=== PATIENT | female | born 1935 | race Caucasian/White ===

== ENCOUNTER 2019-12-14 15:04 | Inpatient (IN) ==
[2019-12-14] MEDS ORDERED: NS 1,000 ML IV PRN (15:45)
--- NOTE | 2019-12-14 15:46 | Diag Imaging Result Doc PS360 ---
EXAM: CT HEAD W/O CONTRAST HISTORY: stroke like symptoms TECHNIQUE: Images were obtained from the skull base to vertex without IV contrast as per standard protocol. This exam was performed using automated exposure control, adjustment of mA or kV according to patient size, and/or use of iterative reconstruction technique. COMPARISON: None. FINDINGS: There are is mild cerebral atrophy. There is deep white matter hypointensity nonspecific in appearance but likely related to microvascular disease. No acute hemorrhage is identified. No midline shift or mass effect. No hydrocephalus. No large infarct is apparent. Calvarium is unremarkable. Paranasal sinuses are clear. IMPRESSION: Atrophy and microvascular disease. No acute intracranial abnormality is appreciated. Electronically signed by Karol Crowder 12/14/2019 3:44 PM
[2019-12-14 16:11] LABS: BASO# 0.03 X1000 (0.0-0.2); BASO% 0.4 % (0.0-0.8); EOS% 1.5 % (0.0-10.0); HEMATOCRIT 39.7 % (37.0-47.0); HEMOGLOBIN 13.3 g/dL (12.0-16.0); IMM GRAN# 0.01 X1000 (0.0-0.04); IMM GRAN% 0.1 % (0.0-0.5); LYMPH# 3.27 X1000 (1.2-3.4); LYMPH% 48.8 % (20.5-51.1); MCH 31.1 PG (27-31); MCHC 33.5 g/dL (33-37); MONO# 0.67 X1000 (0.11-0.59); MPV 9.9 FL (7.4-10.4); NEUT# 2.62 X1000 (1.4-6.5); NEUT% 39.2 % (42.2-75.2); PLT 333 X1000 (130-400); RBC 4.27 XMIL (4.2-5.4); RDW 13.8 % (11.5-14.5)
--- NOTE | 2019-12-14 16:23 | Diag Imaging Result Doc PS360 ---
EXAM: CHEST-PORTABLE HISTORY: stroke like syndrome TECHNIQUE: Single view of the chest was performed portably. COMPARISON: None. FINDINGS: The cardiomediastinal silhouette is within normal limits. The pulmonary vasculature is not congested. There are prominent interstitial markings at the lung bases which may be acute or chronic. No focal consolidation, effusion, or pneumothorax is appreciated. IMPRESSION: Mildly increased interstitial markings at the bases which is nonspecific. No focal consolidation is identified. Electronically signed by Karol Crowder 12/14/2019 4:20 PM
[2019-12-14 16:27] LABS: AGAP 13; ALBUMIN 4.2 g/dL (3.5-5.0); BUN 21 mg/dL (8-22); CALCIUM 9.5 mg/dL (8.8-10.2); CHLORIDE 97 mmol/L (98-107); COSMO 272; CREATININE 0.8 mg/dL (0.5-0.9); ESTIMATED GFR > 60; GLUCOSE 113 mg/dL (70-104); POTASSIUM 4.5 mmol/L (3.5-5.1); SODIUM 134 mmol/L (136-145); TCO2 24 mmol/L (25-35); TOTAL PROTEIN 6.7 g/dL (6.3-8.3)
[2019-12-14 16:28] LABS: ALKALINE PHOSPHATASE 48 U/L (32-104); GOT 25 U/L (10-30); GPT 17 U/L (10-36)
[2019-12-14 16:35] LABS: INR 0.95; PROTIME 13.1 Seconds (11.0-16.0); PTT 29.9 Seconds (22.3-41.8)
[2019-12-14 16:57] LABS: URINE SOURCE CLEAN CATCH
[2019-12-14 17:01] LABS: BILIRUBIN URINE NEGATIVE (NEGATIVE); BLOOD URINE NEGATIVE (NEGATIVE); COLOR YELLOW; GLUCOSE URINE NEGATIVE (NEGATIVE); KETONE URINE NEGATIVE (NEGATIVE); LEUKOCYTES URINE NEGATIVE (NEGATIVE); NITRITE URINE NEGATIVE (NEGATIVE); PROTEIN URINE NEGATIVE (NEGATIVE); SP GRAVITY URINE 1.011; TURBIDITY URINE CLEAR (CLEAR); UROBILINOGEN URINE NORMAL (NORMAL)
[2019-12-14 17:03] LABS: UR EPITHELIAL CELLS <10 /HPF (<10); URINE BACTERIA NEGATIVE /HPF; URINE RBC <10 /HPF (<10); URINE WBC <10 /HPF (<10)
[2019-12-14 17:10] LABS: UR AMPHETAMINES QUAL NONE DETECTED (NONE DETECT); UR BARBITUATES QUAL NONE DETECTED (NONE DETECT); UR BENZODIAZEPIN QUAL NONE DETECTED (NONE DETECT); UR CANNABINOIDS QUAL NONE DETECTED (NONE DETECT); UR COCAINE QUAL NONE DETECTED (NONE DETECT); UR METHADONE QUAL NONE DETECTED (NONE DETECT); UR METHAMPHETAMINE QUAL NONE DETECTED (NONE DETECT); UR OPIATES QUAL NONE DETECTED (NONE DETECT); UR OXYCODONE QUAL NONE DETECTED (NONE DETECT); UR PCP QUAL NONE DETECTED (NONE DETECT); UR PROPOXYPHENE QUAL NONE DETECTED (NONE DETECT); UR TCA QUAL NONE DETECTED (NONE DETECT)
--- NOTE | 2019-12-14 17:19 | PROVIDER DOCUMENTATION ---
This chart was entered by Kim Rsoenberg Scribe, acting as scribe for Nadege Castro MD. HPI-Neurological Disorder - General Chief Complaint: Stroke-Like Symptoms Stated Complaint: AMS Time Seen by Provider: 12/14/19 15:14 Source: patient, family (daughter) Allergies/Adverse Reactions: Patient Allergies Allergy/AdvReac Type Severity Reaction Status Date / Time Sulfa (Sulfonamide Allergy HIVES Verified 01/20/17 10:43 Antibiotics) codeine AdvReac NAUSEA/VOMI Verified 01/20/17 10:43 TING hydrocodone AdvReac NAUSEA/VOMI Verified 01/20/17 10:43 TING morphine AdvReac NAUSEA/VOMI Verified 01/20/17 10:43 TING propoxyphene HCl * AdvReac NAUSEA/VOMI Verified 01/20/17 10:43 [From Darvon] TING Home Medications: Home Medication List Medication Instructions Recorded Confirmed Last Taken Type Irbesartan 1 tab PO DAILY 05/20/18 05/20/18 Unknown History Metoprolol [Lopressor] 1 tab PO DAILY 05/20/18 05/20/18 Unknown History Polyethylene Glycol 3350 [Miralax] 17 gm PO DAILY #255 powder 05/20/18 Unknown Rx - History of Present Illness-Neuro Nature of Presenting Problem: Patient is a 84 year old female who presents with daughter for slurred speech. Daughter states the patient noticed the slurred speech this morning at 0800 when waking. Denies history of CVA. Severity: reports: mild Onset/Duration: reports: other (with waking this morning at 0800) Timing: reports: still present Context: reports: impaired speech (slurred) Character of Deficits: reports: impaired speech (slurred) Associated Symptoms: reports: denies symptoms Similar Symptoms Previously?: No Recently seen or treated by another doctor?: No Review of Systems - Adult - REVIEW OF SYSTEMS - ADULT Constitutional: reports: no symptoms reported Eyes: reports: no symptoms reported Ears, Nose, Mouth & Throat: reports: no symptoms reported Cardiovascular: reports: no symptoms reported Respiratory: reports: no symptoms reported Gastrointestinal: reports: no symptoms reported Genitourinary: reports: no symptoms reported Musculoskeletal: reports: no symptoms reported Integumentary: reports: no symptoms reported Neurological: reports: see HPI, slurred speech Psychiatric: reports: no symptoms reported Endocrine: reports: no symptoms reported Hematologic/Lymphatic: reports: no symptoms reported Allergic/Immunologic: reports: no symptoms reported All Other Systems: Reviewed and Negative Past History - Adult - PAST MEDICAL HISTORY-ADULT Review of Records: reports: Old Records Reviewed, Nursing Assessment Review, Medications Reviewed, Social history reviewed & non-contributory. Major Childhood Illnesses: reports: denies history Cardiovascular: reports: HTN Respiratory: reports: denies history Gastrointestinal: reports: other (Diverticulitis) Obstetrical/Gynecological: reports: denies history Genitourinary: reports: kidney stones Musculoskeletal: reports: denies history Neurological: reports: denies history Endocrine/Immune: reports: denies history Other Conditions: reports: denies history - PRIOR SURGERIES/PROCEDURES Surgical/Procedure History: reports: cholecystectomy - IMMUNIZATION STATUS Childhood Immunizations: See Nurse Assessment Flu Vaccine: See Nurse Assessment - FAMILY HISTORY Family History: reviewed, not pertinent - SOCIAL HISTORY Smoking: denies Substance Use: denies Living Situation: family Physical Exam- Neurological - Physical Exam-Neuro Initial Vital Signs Reviewed: Yes General Appearance: alert, no apparent distress. negative: lethargic Eye Exam: bilateral eye: normal inspection HENMT: normocephalic/atraumatic, moist mucous membranes Head Injury: no evidence of injury. negative: active bleeding, lacerations Respiratory: chest non-tender, lungs clear, normal breath sounds. negative: wheezing Cardiovascular: regular rate, rhythm. negative: tachycardia Abdominal Exam: normal bowel sounds, non tender, soft, distended. negative: guarding Extremity: non-tender, normal inspection. 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 negative: facial droop Motor/Sensory: no sensory deficit, weak motor strength RUE. negative: weak motor strength RLE Neurologic: motor weakness (RUE), other (slurred speech). negative: facial droop Integumentary: normal color, normal turgor, warm/dry Psych/Mental Status: normal mood/affect, normal thought content, normal thought process, oriented x 3 Progress - PLAN OF CARE/RESULTS Progress/Plan/Lab Results: Vital Signs - 8 hr 12/14/19 15:09 Temperature 98.7 F Pulse Rate 60 Respiratory Rate 18 Blood Pressure 196/43 O2 Sat by Pulse Oximetry 97 Laboratory Results - last 24 hr 12/14/19 12/14/19 12/14/19 15:54 15:54 15:54 WBC 6.70 RBC 4.27 Hgb 13.3 Hct 39.7 MCV 93.0 MCH 31.1 H MCHC 33.5 RDW Std Deviation 13.8 Plt Count 333 MPV 9.9 Immature Gran % (Auto) 0.1 Neut % (Auto) 39.2 L Lymph % (Auto) 48.8 [place] % (Auto) 10.0 H Eos % (Auto) 1.5 Baso % (Auto) 0.4 Immature Gran # (Auto) 0.01 Neut # (Auto) 2.62 Lymph # (Auto) 3.27 [place] # (Auto) 0.67 H Eos # (Auto) 0.10 Baso # (Auto) 0.03 PT INR PTT (Actin FS) Sodium 134 L Potassium 4.5 Chloride 97 L Carbon Dioxide 24 L Anion Gap 13 BUN 21 Creatinine 0.8 Estimated GFR/1.73 m2 > 60 BUN/Creatinine Ratio 26 Glucose 113 H Calculated Osmolality 272 Calcium 9.5 Total Bilirubin 0.40 AST 25 ALT 17 Alkaline Phosphatase 48 Troponin T High Sens 18 Total Protein 6.7 Albumin 4.2 Globulin 3.0 Albumin/Globulin Ratio 2.0 Urine Source Urine Color Urine Turbidity Urine pH Ur Specific Duff Urine Protein Ur Glucose (Stick) Ur Ketones (Stick) Urine Blood Urine Nitrite Urine Bilirubin Urobilinogen Dipstick Urine Leukocytes Urine WBC (Auto) Urine RBC (Auto) U Epithel Cells (Auto) Urine Bacteria (Auto) Urine Opiates Screen Ur Oxycodone Screen Urine Methadone Screen U Propoxyphene Qual Ur Barbituates Screen Ur Tricyclics Screen Ur Phencyclidine Scrn Ur Amphetamines Screen U Methamphetamines Scrn U Benzodiazepines Scrn Urine Cocaine Screen U Cannabinoids Screen 12/14/19 12/14/19 12/14/19 15:54 16:45 16:45 WBC RBC Hgb Hct MCV MCH MCHC RDW Std Deviation Plt Count MPV Immature Gran % (Auto) Neut % (Auto) Lymph % (Auto) Ballard % (Auto) Eos % (Auto) Baso % (Auto) Immature Gran # (Auto) Neut # (Auto) Lymph # (Auto) [place] # (Auto) Eos # (Auto) Baso # (Auto) PT 13.1 INR 0.95 PTT (Actin FS) 29.9 Sodium Potassium Chloride Carbon Dioxide Anion Gap BUN Creatinine Estimated GFR/1.73 m2 BUN/Creatinine Ratio Glucose Calculated Osmolality Calcium Total Bilirubin AST ALT Alkaline Phosphatase Troponin T High Sens Total Protein Albumin Globulin Albumin/Globulin Ratio Urine Source CLEAN CATCH Urine Color YELLOW Urine Turbidity CLEAR Urine pH 7.0 Ur Specific Duff 1.011 Urine Protein NEGATIVE Ur Glucose (Stick) NEGATIVE Ur Ketones (Stick) NEGATIVE Urine Blood NEGATIVE Urine Nitrite NEGATIVE Urine Bilirubin NEGATIVE Urobilinogen Dipstick NORMAL Urine Leukocytes NEGATIVE Urine WBC (Auto) <10 Urine RBC (Auto) <10 U Epithel Cells (Auto) <10 Urine Bacteria (Auto) NEGATIVE Urine Opiates Screen NONE DETECTED Ur Oxycodone Screen NONE DETECTED Urine Methadone Screen NONE DETECTED U Propoxyphene Qual NONE DETECTED Ur Barbituates Screen NONE DETECTED Ur Tricyclics Screen NONE DETECTED Ur Phencyclidine Scrn NONE DETECTED Ur Amphetamines Screen NONE DETECTED U Methamphetamines Scrn NONE DETECTED U Benzodiazepines Scrn NONE DETECTED Urine Cocaine Screen NONE DETECTED U Cannabinoids Screen NONE DETECTED Orders Category Date Time Status Cardiac Monitoring DIRECTED Care 12/14/19 15:46 Active Misc. NRSG Communication Order DIRECTED Care 12/14/19 15:46 Active Saline Loc NOW Care 12/14/19 15:46 Active CHEST-PORTABLE [RAD] Stat Exams 12/14/19 15:[address] HEAD W/O CONTRAST [CT] Stat Exams 12/14/19 15:20 Completed CBC WITH ELECTRONIC DIFF [HEME] Stat Lab 12/14/19 15:54 Completed COMPREHENSIVE METABOLIC PANEL [CHEM] Stat Lab 12/14/19 15:54 Completed PROTIME WITH INR [COAG] Stat Lab 12/14/19 15:54 Completed PTT [COAG] Stat Lab 12/14/19 15:54 Completed TROPONIN T HIGH SENSITIVITY Stat Lab 12/14/19 15:54 Completed URINALYSIS W/POSS RFLX CULT [URINALYSIS] Stat Lab 12/14/19 16:45 Com[address] URINE DRUG SCREEN PL Stat Lab 12/14/19 16:45 Completed 0.9% Sodium Chloride Inj [Ns] 1,000 ml Med 12/14/19 15:45 Active IV 999 mls/hr EKG [EKG] Stat Ther 12/14/19 15:46 Ordered Result Diagrams: 12/14/19 15:54 12/14/19 15:54 - EKG 1 Time of EKG reading by physician:: 15:57 EKG Read and Signed by:: Nadege Castro EKG Interpretation (*Must complete 3 of following elements*): Abnormal Rate: 57 Rhythm: sinus bradycardia [place]: normal QRS: LBB ME Interval: normal Comments: abnormal ECG - XRAY 1 XRAY Study: Chest Impression: See EMR Report ( EXAM: CHEST-PORTABLE HISTORY: stroke like syndrome TECHNIQUE: Single view of the chest was performed portably. COMPARISON: None. FINDINGS: The cardiomediastinal silhouette is within normal limits. The pulmonary vasculature is not congested. There are prominent interstitial markings at the lung bases which may be acute or chronic. No focal consolidation, effusion, or pneumothorax is appreciated. IMPRESSION: Mildly increased interstitial markings at the bases which is nonspecific. No focal consolidation is identified. Electronically signed by Karol Crowder 12/14/2019 4:20 PM 12/14/19 1620 Interpreting Physician: Karol Crowder MD Dictated Date/Time: 12/14/19 1618 cc: Nadege Castro MD; Ehsan Reynoso MD) - CT/MRI 1 CT Study: Head Impression: See EMR Report ( EXAM: CT HEAD W/O CONTRAST HISTORY: stroke like symptoms TECHNIQUE: Images were obtained from the skull base to vertex without IV contrast as per standard protocol. This exam was performed using automated exposure control, adjustment of mA or kV according to patient size, and/or use of iterative reconstruction technique. COMPARISON: None. FINDINGS: There are is mild cerebral atrophy. There is deep white matter hypointensity nonspecific in appearance but likely related to microvascular disease. No acute hemorrhage is identified. No midline shift or mass effect. No hydrocephalus. No large infarct is apparent. Calvarium is unremarkable. Paranasal sinuses are clear. IMPRESSION: Atrophy and microvascular disease. No acute intracranial abnormality is appreciated. Electronically signed by Karol Crodwer 12/14/2019 3:44 PM 12/14/19 1544 Interpreting Physician: Karol Crowder MD Dictated Date/Time: 12/14/19 1538 cc: Nadege Castro MD; Ehsan Reynoso MD) Departure - Departure Date of Disposition Decision: 12/14/19 Time of Disposition Decision: 17:18 DIAGNOSIS: Expressive dysphasia Disposition: ADMITTED INPATIENT 09 Certified Medical Emergency: Emergent Condition: Good Referrals and Follow-Ups: Ehsan Reynoso MD [Primary Care Provider] - - Critical Care Note This patient required my direct & personal management of CC.: No Attestation - Physician/ OPAL Attestation Patient care was provided by Advanced Practice Provider:: No The physician spent face to face time with patient:: Yes Advanced Practice Provider documentation review:: Supervising physician onsite and consulted in the evaluation and care of this patient. The physician did have a face to face encounter with the patient. This chart was documented by the indicated scribe, (Kim Rosenberg Scribe) and accurately reflects the services I performed and decisions made by me, Nadege Castro MD, as attested by the provider's signature.
[2019-12-14] MEDS ORDERED: NS 1,000 ML IV SCH (18:29)
[2019-12-14] MEDS ORDERED: ZOFRAN IV PRN (18:29)
[2019-12-14] MEDS ORDERED: TYLENOL PO PRN (18:29)
--- NOTE | 2019-12-14 18:44 | HISTORY AND PHYSICAL ---
PRIMARY CARE PROVIDER: Dr. Ehsan Reynoso CHIEF COMPLAINT: Slurred speech, not feeling right. HISTORY OF PRESENT ILLNESS: Ms. Cox is an 84-year-old female who carries a past medical history of hypertension, remote history of diverticulitis, as well as kidney stones, hyperlipidemia. Per daughter at bedside. She called to check on her mom this morning, and her father said she was acting strangely and went back to bed. The sister went to the house to check on her. She was having quite a bit of slurred speech. She was unable to get some of her words out. She was holding her head funny. She had some weakness. They were not able to tell if it was unilateral or bilateral. The patient reports "feeling weird." Daughter at bedside as well as patient feels that her slurred speech has improved. However, it has not completely gone away. You can tell she is trying to find some of her words when she is speaking to you. She does have some minor weaknesses on her right upper and lower extremity, but she knows her name, her date of , the current date, the president, current events. Initial head CT does not show anything acute. We will do a full neurological workup in the a.m. and give her a dose of full-dose aspirin. PAST MEDICAL HISTORY: Hypertension, hyperlipidemia, remote history of diverticulitis and remote history of kidney stones. PAST SURGICAL HISTORY: Exploratory laparotomy where she had bilateral ovary cyst removed at that time and she had a left ovary removed and at that time her appendix out. Neck surgery, fusion, carpal tunnel on the right, cholecystectomy, bilateral cataracts, EGD, and a tilt-table test secondary to syncope. FAMILY HISTORY: Reviewed and noncontributory. SOCIAL HISTORY: She is . She lives at home with her . She has 2 daughters. There is no smoking. No alcohol. No illicit drugs. MEDICATIONS: Home medications are being compiled. REVIEW OF SYSTEMS: Twelve-point review of systems completely negative except for those mentioned in the HPI. PHYSICAL EXAMINATION: VITAL SIGNS: Temperature is 98.6 degrees, heart rate 60, respirations 18, blood pressure 196/43, O2 is 97% on room air. GENERAL: Ms. Cox is an 84-year-old female who is sitting up in stretcher, in no acute distress. HEENT: Atraumatic, normocephalic. PERRL. NECK: Supple. Trachea midline. CARDIOVASCULAR: S1, S2 appreciated. No murmurs, gallops, rubs noted. RESPIRATORY: Lung sounds clear bilaterally. GASTROINTESTINAL: Abdomen soft, nontender, nondistended. Positive bowel sounds 4 quadrants. EXTREMITIES: Lower extremities negative for edema. NEUROLOGIC: Patient is awake, alert, oriented to name, date of , current year, location, president, as well as current events with the stern virus. She continues to have some slurred speech. She does have some weakness on her right. She does have trouble finding her words at times. There was no pronator drift. Tongue is midline. Smile was symmetrical. No facial drooping. No weakness in her shoulder shrug. Follows commands well. DIAGNOSTIC DATA: Head CT does not show anything acute, just some chronic changes. Chest x-ray, mild interstitial markings at the bases that is nonspecific. No consolidation. LABORATORY DATA: White count is 6, hemoglobin and hematocrit of 13 and 39, platelet count is 333,000. Sodium 134, chloride 97, potassium is 4.5, BUN 21, creatinine 0.8, blood glucose is 113. Urinalysis is negative. Drug screen negative. ASSESSMENT AND PLAN: 1. Cerebrovascular accident rule out. Patient does have some residual weakness as well as slurred speech and difficulty finding her words and "feeling weird." We will do a brain MRI/MRA, carotids and echo in the a.m. and give her full-dose aspirin now and daily. Check a lipid profile. We will keep her n.p.o. for now and have the nurses do a bedside swallow. If she passes we will start her on a healthy heart diet tonight. 2. Hypertension. We will allow for some permissive hypertension. 3. Hyperlipidemia. We will check a lipid profile. Go ahead and start her on a statin. 4. Further recommendation to follow physician evaluation, laboratory and diagnostic data. Dictated by ALAINA Martinez for Ehsan Reynoso MD cc: Ehsan Reynoso MD
--- NOTE | 2019-12-14 19:06 | EKG Report ---
Test Performed on : 12/14/2019 3:57:34 PM Test Reason : stroke like symptoms Blood Pressure : / mmHG Vent. Rate : 057 BPM Atrial Rate : 057 BPM P-R Int : 182 ms QRS Dur : 128 ms QT Int : 416 ms P-R-T Axes : 024 -21 136 degrees QTc Int : 404 ms Sinus bradycardia. Left bundle branch block Abnormal ECG When compared with ECG of 20-JAN-2017 10:37, T wave inversion more evident in Lateral leads Unconfirmed Result
--- NOTE | 2019-12-14 22:30 | HISTORY AND PHYSICAL ---
HISTORY OF PRESENT ILLNESS: The patient presented to the hospital with a sudden onset of slurred speech, although this is almost completely resolved, it is not back to normal. She was noted to have high blood pressure in the ER. We are going to admit her to the hospital. Follow her blood pressures which were initially 196/43, currently 145/60. We will check carotids and we will rule out for stroke. cc: Ehsan Reynoso MD
[2019-12-14] MEDS: ASPIRIN PO SCH (22:36)
[2019-12-14] MEDS: LIPITOR PO SCH (22:36)
[2019-12-15 07:08] LABS: HEMATOCRIT 37.9 % (37.0-47.0); HEMOGLOBIN 12.6 g/dL (12.0-16.0); RBC 4.07 XMIL (4.2-5.4); WBC 6.28 X1000 (4.8-10.8)
[2019-12-15 07:14] LABS: MCV 93.1 FL (81-99)
[2019-12-15 07:17] LABS: MCHC 33.2 g/dL (33-37); PLT 316 X1000 (130-400)
[2019-12-15 07:18] LABS: BASO# 0.04 X1000 (0.0-0.2); BASO% 0.6 % (0.0-0.8); EOS# 0.12 X1000 (0.0-0.7); EOS% 1.9 % (0.0-10.0); LYMPH# 3.57 X1000 (1.2-3.4); LYMPH% 56.8 % (20.5-51.1); MONO# 0.64 X1000 (0.11-0.59); MONO% 10.2 % (1.7-9.3); NEUT% 30.3 % (42.2-75.2)
[2019-12-15 07:29] LABS: AGAP 10; ALBUMIN 3.6 g/dL (3.5-5.0); ALKALINE PHOSPHATASE 34 U/L (32-104); BUN 17 mg/dL (8-22); CALCIUM 8.5 mg/dL (8.8-10.2); CHLORIDE 103 mmol/L (98-107); COSMO 278; CREATININE 0.5 mg/dL (0.5-0.9); ESTIMATED GFR > 60; GLUCOSE 104 mg/dL (70-104); GOT 21 U/L (10-30); GPT 15 U/L (10-36); POTASSIUM 4.3 mmol/L (3.5-5.1); SODIUM 138 mmol/L (136-145); TCO2 25 mmol/L (25-35); TOTAL PROTEIN 6.3 g/dL (6.3-8.3)
--- NOTE | 2019-12-15 08:05 | EKG Report ---
Test Performed on : 12/15/2019 07:40:07 AM Test Reason : QAM REPEAT Blood Pressure : / mmHG Vent. Rate : 056 BPM Atrial Rate : 056 BPM P-R Int : 158 ms QRS Dur : 130 ms QT Int : 460 ms P-R-T Axes : 063 -48 105 degrees QTc Int : 443 ms Sinus bradycardia. Left axis deviation Left bundle branch block Abnormal ECG When compared with ECG of 14-DEC-2019 15:57, (Unconfirmed) T wave inversion less evident in Lateral leads Confirmed by Drake Marc MD ([id number]) on 12/17/2019 1:17:53 AM
--- NOTE | 2019-12-15 11:51 | Diag Imaging Result Doc PS360 ---
EXAM: MRI BRAIN W/WO CONTRAST - 12/15/2019 HISTORY: stroke TECHNIQUE: MRI brain without and with contrast. Images are obtained prior to and following gadolinium administration. COMPARISON: 12/14/2019 CT head without contrast FINDINGS: There is an approximately 2.2 cm in AP dimension by 0.8 cm in transverse dimension area of restricted diffusion on the diffusion weighted images at the posterior lateral basal ganglia and adjacent external capsule on the left. The restricted diffusion also extends superiorly superiorly medially from this area to the periventricular region. This is compatible with acute infarct. There is corresponding increased signal on the FLAIR and T2-weighted images. The diffusion weighted images show no other areas of restricted diffusion. There are chronic microvascular ischemic changes in bilateral white matter. There is no evidence of intracranial hemorrhage, mass effect, midline shift, or hydrocephalus. There is no abnormal enhancement identified. 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 Chronic microvascular ischemic changes. No hemorrhage, mass effect, or abnormal enhancement seen. Electronically signed by Magnus Díaz 12/15/2019 11:49 AM
[2019-12-15] MEDS: ASPIRIN PO SCH (11:56)
--- NOTE | 2019-12-15 12:02 | Diag Imaging Result Doc PS360 ---
EXAM: MRA BRAIN W/O CONTRAST - 12/15/2019 HISTORY: stroke TECHNIQUE: MRA brain without contrast. MR angiogram of the intracranial circulation with 3-D MIP images is obtained. COMPARISON: Exam is correlated with the 2019 MRI brain. FINDINGS: There is short segment tight stenosis at the M1 segment left middle cerebral artery. The poststenotic segment is tortuous and possibly mildly dilated. There is short segment tight stenosis at the middle portion of the A2 segment of the left anterior cerebral artery. There is possible short segment relatively tight stenosis at the proximal left posterior cerebral artery, but this is difficult to definitively distinguish from artifact. There is no other major intracranial arterial occlusion identified. There is no aneurysm identified. The right vertebral artery appears to be dominant. 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 Short segment tight stenosis at the middle portion of the A2 segment left anterior cerebral artery. Possible short segment relatively tight stenosis at proximal left posterior cerebral artery versus artifact. Electronically signed by Magnus Díaz 12/15/2019 12:00 PM
--- NOTE | 2019-12-15 12:37 | ECHO REPORT ---
ORDER DATE: 12/15/2019 INDICATION: CVA. FINDINGS: 1. The right atrium appears normal in size. 2. Mild tricuspid regurgitation. RV systolic pressure is estimated at 42 mmHg, but this is a difficult estimation. 3. Poor visualization of the right ventricle, but probable normal RV systolic function. 4. No significant pulmonic insufficiency. 5. Normal left atrial size with a volume index of 25. 6. No mitral valve prolapse. Mild mitral regurgitation. No mitral stenosis. 7. Normal LV size with an end-diastolic dimension of 3.6 cm. [id number] left ventricular hypertrophy with a posterior and interventricular septal wall thickness of 1.4 cm each. Normal ejection fraction with an estimated EF of 60% to 65% with no wall motion abnormalities. Grade 2 diastolic dysfunction. 8. The aortic valve opens well, trileaflet. No evidence of stenosis or insufficiency. 9. The aorta appears normal on visualized segments. 10. No pericardial effusion seen. cc: Marcos Clemente MD
--- NOTE | 2019-12-15 14:28 | Vascular Study Report ---
EXAM: Carotid Ultrasound INDICATION: cva TECHNIQUE: COMPARISON: None. FINDINGS: Right: At the right carotid bulb, there is a mixture of soft plaque and calcified plaque. The peak systolic velocity measures 117, 86, 71, 114, 85, 77, and 114 cm/s at the right subclavian artery, CCA, bifurcation, proximal ICA, mid ICA, distal ICA, and ECA, respectively. There is antegrade flow in the vertebral artery. The carotid ratio is 1.34. The estimated stenosis is 40-59%. Left: There is mild atherosclerotic plaque with calcification at the left carotid bulb. The peak systolic velocity measures 167, 67, 77, 70, 64, 67, 95 cm/s at the left subclavian artery, CCA, bifurcation, proximal ICA, mid ICA, distal ICA, and ECA, respectively. There is antegrade flow in the vertebral artery. The carotid ratio is 1.06. The estimated stenosis is less than 39%. IMPRESSION: Bilateral carotid bulb atherosclerotic disease that is worse on the right as detailed above. Electronically signed by Darien Holden 12/15/2019 2:25 PM
[2019-12-15] MEDS: LIPITOR PO SCH (20:23)
--- NOTE | 2019-12-15 23:12 | PROGRESS NOTE ---
DATE: 12/15/2019 SUBJECTIVE: The patient has no new complaints. She notes that her speech is improving. Denies any fevers or chills. PHYSICAL EXAMINATION: Vital Signs: Temperature 97.8, pulse 51, respiratory rate 18, BP 140/41. General: The patient is awake, pleasant. She is in no current respiratory distress. Speech seems to be back to normal compared to her baseline. HEENT: Normocephalic. Neck: Supple. Cardiovascular: Regular rate. Chest: Clear, nonlabored. Abdomen: Soft, nondistended. Extremities: Moves all extremities. ASSESSMENT: 1. Acute CVA as noted by MRI. 2. Hypertension. 3. Hyperlipidemia. PLAN: The patient's blood pressure is stable. We are going to watch her in the hospital today. If her symptoms continue to improve hopefully she can discharge home tomorrow. cc: Ehsan Reynoso MD
[2019-12-16 08:02] VITALS: BP 148/44
[2019-12-16] MEDS: ASPIRIN PO SCH (08:27)
--- NOTE | 2019-12-16 09:29 | DISCHARGE SUMMARY ---
ADMISSION DATE: 12/14/2019 DISCHARGE DATE: 12/16/2019 PRIMARY PROCEDURES: Head CT head CT, atrophy and microvascular disease, no acute intracranial abnormality. Brain MRA shows a short segment stenosis at the M1 segment left middle cerebral artery, short segment type stenosis in the midportion of the A2 segment left anterior cerebral artery, possible short-segment relatively tight stenosis of proximal left posterior cerebral artery versus artifact. Brain MRI, acute infarct at the left posterior left basal ganglia, external capsule with superior medial extension into the periventricular region, chronic ischemic changes, no hemorrhage, no mass effect. Echocardiogram showed a grade 2 diastolic dysfunction with an EF of 60 to 65 percent with no wall motion abnormalities. Carotid Dopplers, bilateral carotid bulb atherosclerosis disease that is worse on the right, right is 40 to 59, left is less than 39. DISCHARGE DIAGNOSES: 1. Acute cerebrovascular accident noted on MRI. The patient continues with some expressive aphasia. She has been evaluated by Physical Therapy as well as Speech Therapy. They recommend home health with PT and speech. Added Lipitor to her regimen. 2. Hypertension, controlled. 3. Hyperlipidemia. Continue Lipitor. HOSPITAL COURSE: Briefly, Ms. Cox is an 84-year-old female with a past medical history of hypertension and remote history of diverticulitis, as well as kidney stones and hyperlipidemia. Family reported that the patient was acting strangely in the morning, that she went back to bed. Her daughter went to check on her and she was having quite a bit of slurred speech. She was having difficulty getting her words out and they felt that she was holding her head funny and the patient "felt weird," so she was brought to the ED to be evaluated. She had some minor weaknesses on her right upper and lower extremities. She was still having some slurred speech as well as difficulty finding her words; however, the daughter stated that it had dramatically improved. Full neurological workup was done. The patient's findings on MRI did show acute infarct at the left posterior lateral basal ganglia external capsule with superior medial extension to the periventricular region. She was continued on aspirin and initiated on Lipitor, which she will be discharged home on as well as home health with speech and physical therapy. VITAL SIGNS: At time of her discharge temperature is 98.1 degrees, heart rate 62, respirations 16, blood pressure 148/44, O2 is 97% to room air. DISCHARGE MEDICATIONS: 1. Celecoxib 100 mg p.o. daily. 2. Spironolactone 12.5 mg p.o. daily. 3. Lipitor 20 mg p.o. daily. FOLLOWUP: Ms. Cox is being discharged home with home health with PT and speech therapy. She will follow up with her primary care provider, Dr. Ehsan Reynoso. She will take all medications as prescribed. She can return to the ED or call 911 for any worsening of symptoms. Dictated by ALAINA Martinez for Ehsan Reynoso MD cc: Ehsan Reynoso MD
--- NOTE | 2019-12-16 19:50 | DISCHARGE SUMMARY ---
ADMISSION DATE: 12/14/2019 DISCHARGE DATE: 12/16/2019 Patient unfortunately did have a stroke. Her speech, however, is almost completely back to normal. She is awake, alert. She has no difficulty moving her extremities. She is able to ambulate without any difficulty. Blood pressures are mildly elevated 158/49. Patient will restart her home blood pressure medications. We did start her on Lipitor even though her cholesterols were normal. Discussed with her and her daughter the reason, i.e. it decreases her rate of a second stroke. She will follow up in the office in 1 week. cc: Ehsan Reynoso MD
== END 2019-12-16 10:18 | disposition home health service (06) | DRG 66 ==
LOC: P.ED 15:04 → P.MEDSURG 15:05
PROVIDERS: ATTEND Family Medicine